=== PATIENT | male | born 1950 | race Two or more races ===

== ENCOUNTER 2025-01-21 13:54 | Outpatient (RCR) | payer MEDICARE, MEDICAID, SELFPAY | END 2025-02-03 23:59 | disposition home or self-care (01) | LOC: SCTC 13:54 | PROVIDERS: PCP Student in an Organized Health Care Education/Training Program; Referring Provider Student in an Organized Health Care Education/Training Program; Visit Provider Radiology Therapeutic Radiology | DX: C64.1 Malignant neoplasm of right kidney, except renal pelvis (principal) | CPT/HCPCS: 99213; G0463 ==